=== PATIENT | female | born 1995 | race Caucasian/White ===

== ENCOUNTER 2020-06-05 13:05 | Emergency (ER) | payer MEDICAID | END 2020-06-05 15:19 | disposition home or self-care (01) | LOC: M ED 13:05 | DX: M54.41 Lumbago with sciatica, right side (principal) ==

== ENCOUNTER → 2021-04-29 | Outpatient (REF) | payer OTHER | LOC: M PLALAB 13:34 | PROVIDERS: ATTEND Obstetrics & Gynecology | DX: N97.9 Female infertility, unspecified (principal) ==

== ENCOUNTER → 2021-05-09 | Outpatient (CLI) | payer OTHER ==
[2021-05-09 17:57] LABS: FREE T4 0.86 NG/DL (0.76-1.46); PROLACTIN 12.9 NG/ML
[2021-05-09 17:58] LABS: ESTRADIOL 22.7 PG/ML; LUTEINIZING HORMONE 2.8 mIU/mL
[2021-05-09 17:59] LABS: FOLLICLE STIMULATING HORMONE 5.3 mIU/mL
[2021-05-09 18:44] LABS: GC DNA AMPLIFICATION NEGATIVE (NEGATIVE)
[2021-05-10 10:25] LABS: HEPATITIS C VIRUS ABY INDEX < 0.0 INDEX (<0.8)
[2021-05-10 10:26] LABS: HIV 1&2 SCREEN CENTAUR NEGATIVE (NEGATIVE)
[2021-05-13 04:12] LABS: ANTI MULLERIAN HORMONE 3.09 ng/mL (.); TESTOSTERONE FREE (DIRECT) 1.9 pg/mL (0.0-4.2)
== END ==
LOC: M PLALAB 15:51
PROVIDERS: ATTEND Obstetrics & Gynecology
DX: N97.9 Female infertility, unspecified (principal)

== ENCOUNTER → 2021-05-26 | Outpatient (CLI) | payer OTHER | LOC: M LAB 16:39 | PROVIDERS: ATTEND Obstetrics & Gynecology | DX: N97.9 Female infertility, unspecified (principal) ==